=== PATIENT | male | born 1990 | race Caucasian/White ===

== ENCOUNTER 2016-10-29 22:04 | Emergency (ER) | payer OTHER ==
[~2016-10-29] VITALS: Ht 172.7 cm; Wt 100.0 kg
[2016-10-29] MEDS ORDERED: SODIUM CHLORIDE 0.9% 1,000 ML IV ONE (23:11)
[2016-10-29] MEDS ORDERED: ACETAMINOPHEN 325MG TABLET PO STA (23:11)
[2016-10-29] MEDS ORDERED: VANCOMYCIN 1,500 MG in DEXT 5% WATER 250 ML IV SCH (23:15)
[2016-10-29 23:43] LABS: BASOPHILS % 0.3 % (0.0-2.0); EOSINOPHILS % 0.6 % (0.0-5.0); HEMATOCRIT. 44.7 % (42.0-52.0); LYMPHOCYTES % 12.9 % (20.0-50.0); MEAN CORPUSCULAR HEMOGLOBIN 28.9 pg (28.0-32.0); MEAN CORPUSCULAR VOLUME 86.2 fL (80.0-94.0); MONOCYTES % 6.5 % (2.0-8.0); NEUTROPHILS % 79.7 % (40.0-76.0); PLATELET 222 x1000/uL (130-400); RED BLOOD CELL COUNT 5.19 mill/uL (4.7-6.1); RED CELL DISTRIBUTION WIDTH 13.5 % (11.6-14.6)
[2016-10-29 23:49] LABS: CHLORIDE 104 mEq/L (98-107)
[2016-10-29 23:51] LABS: INR 1.1; PROTHROMBIN TIME 11.3 sec
[2016-10-29 23:58] LABS: CARBON DIOXIDE 25 mEq/L (21-32)
[2016-10-30] MEDS ORDERED: IBUPROFEN 800MG TABLET PO ONE (01:45)
[2016-10-30 04:14] VITALS: BP 130/76
[2016-10-30] MEDS ORDERED: IOHEXOL-300 100 ML BOTTLE ONE (14:27)
[2016-10-30] MEDS ORDERED: SODIUM CHLORIDE 0.9% 10ML VIAL ONE (14:27)
== END 2016-10-30 04:20 | disposition home or self-care (01) ==
LOC: ER 22:04
DX: S80.811A Abrasion, right lower leg, initial encounter (principal); L03.115 Cellulitis of right lower limb; T63.301A Toxic effect of unspecified spider venom, accidental (unintentional), initial encounter; W57.XXXA Bitten or stung by nonvenomous insect and other nonvenomous arthropods, initial encounter; Y93.89 Activity, other specified; Y92.89 Other specified places as the place of occurrence of the external cause; Y99.8 Other external cause status
CPT/HCPCS: 36415; 71010; 73700; 80053; 83605; 85025; 85610; 87040; 93005; 96361; 96365; 96366; 99285; A4216; J3370; J7030; Q9967; Z7610; J7060